=== PATIENT | male | born 2000 | race Caucasian/White ===

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

== ENCOUNTER 2019-07-09 20:37 | Emergency (ER) | payer OTHER ==
[~2019-07-09] VITALS: Ht 180.3 cm; Wt 65.9 kg
[2019-07-09 23:59] VITALS: BP 110/68
[2019-07-10] MEDS ORDERED: BUPIVACAINE HCL/PF 0.25% 10 ML VIAL INJ ONE (00:30)
[2019-07-10] MEDS ORDERED: BACITRACIN 0.9 GM PACKET OINTMENT TP ONE (00:30)
== END 2019-07-10 01:05 | disposition home or self-care (01) ==
LOC: EMS 20:38
DX: S61.412A Laceration without foreign body of left hand, initial encounter (principal); W25.XXXA Contact with sharp glass, initial encounter; Y93.89 Activity, other specified; Y92.89 Other specified places as the place of occurrence of the external cause; Y99.8 Other external cause status
CPT/HCPCS: 12002; 99283; J3490

== ENCOUNTER 2022-12-12 22:44 | Emergency (ER) | payer OTHER ==
[~2022-12-12] VITALS: Ht 175.3 cm; Wt 75.0 kg
[2022-12-12] MEDS ORDERED: IBUPROFEN 600 MG TABLET PO ONE (23:45)
[2022-12-12] MEDS ORDERED: IBUP-1492 PO (23:46)
[2022-12-12 23:54] VITALS: BP 134/72
== END 2022-12-13 00:27 | disposition home or self-care (01) ==
LOC: EMS 22:51
DX: R07.81 Pleurodynia (principal); F12.90 Cannabis use, unspecified, uncomplicated
CPT/HCPCS: 99282; Z7502; Z7610